=== PATIENT | female | born 1940 | race Caucasian/White ===

== ENCOUNTER 2019-05-17 15:14 | Emergency (ER) | payer OTHER ==
[~2019-05-17] VITALS: Ht 160 cm; Wt 74.8 kg
[~2019-05-17 15:14] MED LIST: MOTION RELIEF25 MG PO; MULTIVITAMINS PO; VALIUM; [UNRECOGNIZED DRUG - OTHER]
[2019-05-17] MEDS ORDERED: ANUSOL-HC30 GM TOP (17:37)
[2019-05-17] MEDS ORDERED: PROBIOTIC1 EAC7 PO (17:37)
[2019-05-17 18:46] VITALS: BP 137/75
== END 2019-05-17 18:40 | disposition home or self-care (01) ==
LOC: ER 15:14
DX: K59.00 Constipation, unspecified (principal); K60.2 Anal fissure, unspecified; F31.9 Bipolar disorder, unspecified; Z87.891 Personal history of nicotine dependence